=== PATIENT | female | born 1950 | race Caucasian/White ===

== ENCOUNTER 2023-12-26 05:04 | Inpatient (IN) ==
--- NOTE | 2023-12-26 05:43 | ED.ABDFE ---
HPI Time Seen Time Seen by Provider: 12/26/23 05:43 PCP Primary Care Physician: [facility] Chief Complaint Comments: Patient presents with worsening abdominal pain LLQ radiating to RLQ. Patient states that she has had the pain for 2 weeks and it has worsened. It is a cramping pain. Patient states that she has no medical probs. Patient has had fever to 102.2 yesterday after noon. Patient denies: hematemesis,hematochezia,n,v,back pain,urinary sxs. Chief Complaint:: PT AMBULATORY IN ED WITH C/O LEFT ABD PAIN THAT RADIATES DOWN AND ACROSS LOWER ABD X 2 WEEKS. COVID-19 Coronavirus risk:travel/contact w/high risk person: No Has patient experienced Coronavirus symptoms: No Source History Provided: Patient Mode of arrival Mode of Arrival: Ambulatory Timing Onset of Chief Complaint: 12/12/23 PMH PMH Past Medical History: No Past Medical History: Migraines Past Surgical History: Yes Surgical History: Ectopic Family History History of Family Medical Conditions: Yes Family Medical History: Hypertension Social History Does patient currently use any type of tobacco product: Yes Have you used tobacco products in the last 12 months: Yes Type of Tobacco Use: Cigarettes Does any household member use tobacco: No Alcohol Use: None Do you use any recreational Drugs:: No Lives With: Family Lives Where: Home Travel Risk Coronavirus risk:travel/contact w/high risk person: No Has patient experienced Coronavirus symptoms: No Infectious screening In the last 2 months have you had wt loss of >10#?: NO Have you had fever, night sweats or hemotysis?: No Have you traveled outside the country in the last 6 months?: No Isolation: Standard ROS Review of Systems Constitutional: Fever Eyes: No Symptoms Reported ENTM: No Symptoms Reported Respiratoy: No Symptoms Reported Cardiovascular: No Symptoms Reported Gastrointestinal/Abdominal: Abdominal Pain (LLQ/RLQ) Genitourinary: No Symptoms Reported Neurological: No Symptoms Reported Musculoskeletal: No Symptoms Reported Integumentary: No Symptoms Reported Hematologic/Lymphatic: No Symptoms Reported Endocrine: No Symptoms Reported Psychiatric: No Symptoms Reported All Other Systems: Reviewed and Negative PE Vital Signs Vitals: Vital Signs Temperature 99.3 F Pulse Rate 99 Pulse Rate 100 Pulse Rate 100 Pulse Rate 99 Pulse Rate 99 Pulse Rate 98 Pulse Rate 95 Pulse Rate 95 Pulse Rate 98 Pulse Rate 99 Pulse Rate 101 Pulse Rate 103 Pulse Rate 105 Pulse Rate 113 Respiratory Rate 18 Respiratory Rate 22 Blood Pressure 95/62 Blood Pressure 77/51 Blood Pressure 86/66 Blood Pressure 87/66 Blood Pressure 87/58 Blood Pressure 95/52 Blood Pressure 110/78 O2 Sat by Pulse Oximetry 96 O2 Sat by Pulse Oximetry 94 O2 Sat by Pulse Oximetry 96 O2 Sat by Pulse Oximetry 93 O2 Sat by Pulse Oximetry 100 O2 Sat by Pulse Oximetry 98 O2 Sat by Pulse Oximetry 99 O2 Sat by Pulse Oximetry 97 O2 Sat by Pulse Oximetry 85 O2 Sat by Pulse Oximetry 89 O2 Sat by Pulse Oximetry 91 O2 Sat by Pulse Oximetry 91 O2 Sat by Pulse Oximetry 94 O2 Sat by Pulse Oximetry 91 General Limitations: No Limitations and Language Barrier General Appearance: Alert and In No Apparent Distress Head Head Exam: Normal Inspection Eyes Eye exam: Normal Appearance ENT ENT Exam: Normal Exam Neck Neck Exam: Normal Inspection Chest Chest Inspection: Normal Inspection Respiratory Respiratory Exam: Normal Lung Sounds Bilat Respiratory Exam: Bilateral: Clear to Auscultation Cardiovascular Cardiovascular Exam: Regular Rate and Normal Rhythm Abdominal Exam Abdominal Exam: Soft, Tenderness, Guarding (luq and LLq) and Hypoactive Bowel Sounds Abdominal Tenderness: RLQ, LUQ and LLQ Rectal Rectal Exam: Deferred Back Back Exam: Normal Inspection Extremeties Extremities Exam: Normal Inspection Neurologic Neurological Exam: Alert and Oriented X3 Psychiatric Psychiatric Exam: Normal Affect and Normal Mood Skin Skin Exam: Warm, Dry and Intact MDM Differential Diagnosis Differential Diagnosis- Considerations may include:: Bowel Obstruction, Diverticular disease, Inflammatory BD, Urinary tract infection and Urolithiasis COURSE Treatment Treatment: Patient was brought to an exam rm and iv access was initiated. She was given NS 1 liter iv bolus and morphine 2mg iv/zofran 4mg iv. Patient is getting a second NS bolus iv. Her u/a is pos and wbc is 12.8.Patient received levaquin 750mg iv. Abd/pelvis CT w/ contrast revealed L colitis and ureteritis. Patient had episode of hypotension that is resolving with the 2nd fluid bolus. Flagyl 500mg iv q 6h has been ordered. Discussed case with Dr Pérez Patient's Primary Care physician . Dr Pérez has accepted Patient to his service. Dr Pérez states that patient has h/o COPD.will order albuterol neb treatments prn. [facility] Labs Reviewed 12/26/23 06:08 12/26/23 06:08 Laboratory: WBC 12.8 X10^3/uL (3.6-10.0) H 12/26/23 06:08 RBC 5.08 X10^6/uL (3.5-5.4) 12/26/23 06:08 Hgb 15.2 g/dL (12.0-16.0) 12/26/23 06:08 Hct 47.0 % (36.0-47.0) 12/26/23 06:08 MCV 92.6 fL (80.0-100.0) 12/26/23 06:08 MCH 30.0 pg (27.0-34.0) 12/26/23 06:08 MCHC 32.4 g/dL (33.0-35.0) L 12/26/23 06:08 RDW 13.8 % (11.6-16.5) 12/26/23 06:08 Plt Count 276 X10^3/uL (150.0-450.0) 12/26/23 06:08 MPV 8.1 fL (7.4-11.0) 12/26/23 06:08 Neut % (Auto) 78.7 % (42.0-75.0) H 12/26/23 06:08 Lymph % (Auto) 10.8 % (21.0-51.0) L 12/26/23 06:08 Mclean % (Auto) 9.3 % (0.0-13.0) 12/26/23 06:08 Eos % (Auto) 0.6 % (0.9-2.9) L 12/26/23 06:08 Baso % (Auto) 0.6 % (0.2-1.0) 12/26/23 06:08 Neut # (Auto) 10.1 x10^3/uL (2.2-4.8) H 12/26/23 06:08 Lymph # (Auto) 1.4 X10^3/uL (1.3-2.9) 12/26/23 06:08 Mclean # (Auto) 1.2 x10^3/uL (0.3-0.8) H 12/26/23 06:08 Eos # (Auto) 0.1 x10^3/uL (0.0-0.2) 12/26/23 06:08 Baso # (Auto) 0.1 X10^3/uL (0.0-0.1) 12/26/23 06:08 Absolute Nucleated RBC 0.1 /100WBC 12/26/23 06:08 Sodium 136 mmol/L (136-145) 12/26/23 06:08 Corrected Sodium 136 mmol/L (136-145) 12/26/23 06:08 Potassium 3.9 mmol/L (3.5-5.1) 12/26/23 06:08 Chloride 100 mmol/L (98-107) 12/26/23 06:08 Carbon Dioxide 28.8 mmol/L (21-32) 12/26/23 06:08 BUN 19 mg/dL (7-18) H 12/26/23 06:08 Creatinine 1.20 mg/dL (0.55-1.02) H 12/26/23 06:08 Est GFR (MDRD) Af Amer 57 (>60) L 12/26/23 06:08 Est GFR (MDRD) Non-Af 47 (>60) L 12/26/23 06:08 Glucose 119 mg/dL (65-99) H 12/26/23 06:08 Lactic Acid 1.3 mmol/L (0.4-2.0) 12/26/23 06:08 Calcium 8.7 mg/dL (8.5-10.1) 12/26/23 06:08 Amylase 39 Units/L (25-115) 12/26/23 06:08 Lipase 22 Units/L (16-77) 12/26/23 06:08 Specimen Type Clean catch urine 12/26/23 06:10 Urine Color Yellow (YELLOW) 12/26/23 06:10 Urine Appearance Hazy (CLEAR) 12/26/23 06:10 Urine pH 5.0 (5.0 - 8.0) 12/26/23 06:10 Ur Specific Dyer 1.020 (1.000-1.030) 12/26/23 06:10 Urine Protein 3+ (NEGATIVE) 12/26/23 06:10 Urine Glucose (UA) Negative (NEGATIVE) 12/26/23 06:10 Urine Ketones Negative (NEGATIVE) 12/26/23 06:10 Urine Blood 3+ (NEGATIVE) 12/26/23 06:10 Urine Nitrite Positive (NEGATIVE) 12/26/23 06:10 Urine Bilirubin Negative (NEGATIVE) 12/26/23 06:10 Urine Urobilinogen Normal (NORMAL) 12/26/23 06:10 Ur Leukocyte Esterase 3+ (NEGATIVE) 12/26/23 06:10 Opioid Opioid Risk Tool Age (Johann box if 16-45): No History of Preadolescent Sexual Abuse: No Total: 0 Total Score Risk Category: Low Risk Copyright: Charles MEDRANO predicting aberrant behaviors Discharge Plan Diagnosis Discharge Problem: Colitis, Ureteritis, Urinary tract infection Discharge Plan Patient Disposition: ADMITTED INPATIENT Condition: Stable Prescriptions: No Action [facility] Concerns: Post Hospitalization: new medications and changes needed to prevent readmission or further decline. Pt educated and given instructions on all concerns. Plan of Treatment: Continue with present treatment and follow up plan. Pt is to keep follow up appointment as instructed and take medications as ordered. Orders to Discharge Patient Discharge Orders: Transfer (Routine); Ordered 12/26/23 Ordered By: Shayna Zamora Follow ups/Referrals Follow ups/Referrals: RIN PÉREZ [Primary Care Provider] - 3 days Instructions Stand Alone Forms: Post Hospital Follow Up Care
[2023-12-26] MEDS: MORPHINE SULFATE INJ 2 MG INJ IVP ONE (06:06)
[2023-12-26] MEDS: PEPCID 20 MG VIAL IVP ONE (06:06)
[2023-12-26] MEDS: NS 1,000 ML IV 1,000 ML IV ONE ×2 (06:06→07:54)
[2023-12-26] MEDS: ZOFRAN INJ 4 MG VIAL IVP ONE (06:06)
[2023-12-26 06:30] LABS: BASOPHILS # (AUTO) 0.1 X10^3/uL (0.0-0.1); BASOPHILS % (AUTO) 0.6 % (0.2-1.0); EOSINOPHILS # (AUTO) 0.1 x10^3/uL (0.0-0.2); EOSINOPHILS % (AUTO) 0.6 % (0.9-2.9); HEMOGLOBIN 15.2 g/dL (12.0-16.0); LYMPHOCYTES # (AUTO) 1.4 X10^3/uL (1.3-2.9); LYMPHOCYTES % (AUTO) 10.8 % (21.0-51.0); MEAN CORPUSCULAR HGB CONC 32.4 g/dL (33.0-35.0); MEAN CORPUSCULAR VOLUME 92.6 fL (80.0-100.0); MEAN PLATELET VOLUME 8.1 fL (7.4-11.0); MONOCYTES # (AUTO) 1.2 x10^3/uL (0.3-0.8); MONOCYTES % (AUTO) 9.3 % (0.0-13.0); NEUTROPHILS # (AUTO) 10.1 x10^3/uL (2.2-4.8); NEUTROPHILS % (AUTO) 78.7 % (42.0-75.0); PLATELET COUNT 276 X10^3/uL (150.0-450.0); RED BLOOD COUNT 5.08 X10^6/uL (3.5-5.4); RED CELL DISTRIBUTION WIDTH 13.8 % (11.6-16.5); WHITE BLOOD COUNT 12.8 X10^3/uL (3.6-10.0)
[2023-12-26 06:31] LABS: BILIRUBIN,URINE NEGATIVE (NEGATIVE); BLOOD/HEMOGLOBIN,URINE 3+ (NEGATIVE); GLUCOSE, URINE NEGATIVE (NEGATIVE); KETONES,URINE NEGATIVE (NEGATIVE); LEUKOCYTE ESTERASE ,URINE 3+ (NEGATIVE); NITRITES,URINE POSITIVE (NEGATIVE); PROTEIN,URINE 3+ (NEGATIVE); UROBILINOGEN,URINE NORMAL (NORMAL)
[2023-12-26 06:34] LABS: APPEARANCE,URINE HAZY (CLEAR); COLOR,URINE YELLOW (YELLOW)
[2023-12-26 06:51] LABS: POTASSIUM 3.9 mmol/L (3.5-5.1)
[2023-12-26 06:58] LABS: CALCIUM 8.7 mg/dL (8.5-10.1); CARBON DIOXIDE 28.8 mmol/L (21-32); CREATININE 1.2 mg/dL (0.55-1.02)
[2023-12-26] MEDS: LEVAQUIN PREMIX IV 750 MG 750 MG/150 ML BAG IV ONE (07:08)
--- NOTE | 2023-12-26 07:44 | CT ---
EXAM:ABDCMEN/PELVIS WITH CONHISTORY:fever,llq pain,lk for inflam/perf/obstr/ischem; ECTOPIC PREGNANCYCOMPARISON:NoneTECHNIQUE:CT of the abdomen and pelvis obtained with IV contrast. Dose reduction techniques including Automated Exposure Control (AEC) and adjustment of mA and kV were utilized.FINDINGS:The visualized portions of the lower thorax demonstrate no acute process.No acute osseous abnormality. Multilevel degenerative changes in the visualized spine.The liver, gallbladder, spleen, pancreas, bilateral adrenal glands, and bilateral kidneys demonstrate no acute process. Possible urothelial enhancement in the proximal left ureter.No evidence of bowel obstruction. The appendix is unremarkable. Moderate colonic fecal burden. Possible mild thickening of the descending colon.The bladder is unremarkable. The uterus is present. No free air or fluid. Nonaneurysmal aorta. Scattered vascular calcifications.IMPRESSION:Possible mild thickening of the descending colon which could be seen with infectious/inflammatory colitis.Possible proximal left ureteritis.THIS IS AN ELECTRONICALLY VERIFIED FINAL REPORT12/26/2023 7:41 AM - Electronically signed by Lance Adames MD
[2023-12-26] MEDS ORDERED: PROVENTIL NEB TX 0.083% 2.5MG/ 3ML NEB PRN (08:17)
[2023-12-26] MEDS: PROVENTIL NEB TX 0.083% 2.5MG/ 3ML NEB ONE (08:23)
[2023-12-26] MEDS: LEVAQUIN PREMIX IV 750 MG 750 MG/150 ML BAG IV SCH (10:00)
[2023-12-26 10:05] LABS: ALBUMIN 2.5 g/dL (3.4-5.0); COR CA(FOR HYPOALB) 9.9 mg/dL (8.5-10.1)
[2023-12-26 10:16] LABS: TOTAL PROTEIN 6.8 g/dL (6.4-8.2)
[2023-12-26] MEDS: COLACE CAP 100 MG PO STA (10:33)
[2023-12-26] MEDS: FLAGYL IV PREMIX 500 MG BAG 500 MG/100 ML BAG IV SCH (10:33)
[2023-12-26] MEDS: DUONEB 0.5 MG/3 MG (3 mL) NEB SCH (12:40)
[2023-12-26] MEDS: TYLENOL 500 MG TAB EXTRA STRENGTH PO PRN (14:46)
[2023-12-26] MEDS: NS 1,000 ML IV 1,000 ML IV SCH (17:05)
[2023-12-26 17:15] VITALS: BMI 20.5
[2023-12-26] MEDS: COLACE CAP 100 MG PO SCH (20:35)
[2023-12-26] MEDS: MILK OF MAGNESIA PO SCH (20:35)
[2023-12-27 06:48] LABS: BASOPHILS # (AUTO) 0.1 X10^3/uL (0.0-0.1); BASOPHILS % (AUTO) 0.9 % (0.2-1.0); EOSINOPHILS # (AUTO) 0.1 x10^3/uL (0.0-0.2); HEMATOCRIT 40.2 % (36.0-47.0); HEMOGLOBIN 13.4 g/dL (12.0-16.0); LYMPHOCYTES # (AUTO) 1.3 X10^3/uL (1.3-2.9); LYMPHOCYTES % (AUTO) 13.2 % (21.0-51.0); MEAN CORPUSCULAR HGB CONC 33.3 g/dL (33.0-35.0); MEAN PLATELET VOLUME 8.1 fL (7.4-11.0); MONOCYTES # (AUTO) 0.9 x10^3/uL (0.3-0.8); MONOCYTES % (AUTO) 9.4 % (0.0-13.0); NEUTROPHILS # (AUTO) 7.3 x10^3/uL (2.2-4.8); NEUTROPHILS % (AUTO) 75.5 % (42.0-75.0); PLATELET COUNT 223 X10^3/uL (150.0-450.0); RED BLOOD COUNT 4.33 X10^6/uL (3.5-5.4); RED CELL DISTRIBUTION WIDTH 13.6 % (11.6-16.5); WHITE BLOOD COUNT 9.6 X10^3/uL (3.6-10.0)
[2023-12-27 06:53] LABS: ALANINE AMINOTRANSFERASE 16 Units/L (12-78); ALBUMIN 1.9 g/dL (3.4-5.0); ALKALINE PHOSPHATASE 77 Units/L (46-116); ASPARTATE AMINO TRANSFERASE 22 Units/L (15-37); BLOOD UREA NITROGEN 14 mg/dL (7-18); CALCIUM 8.2 mg/dL (8.5-10.1); CARBON DIOXIDE 29.2 mmol/L (21-32); CHLORIDE 106 mmol/L (98-107); COR CA(FOR HYPOALB) 9.9 mg/dL (8.5-10.1); CREATININE 0.98 mg/dL (0.55-1.02); GLUCOSE 108 mg/dL (65-99); SODIUM 140 mmol/L (136-145); TOTAL PROTEIN 5.7 g/dL (6.4-8.2); eGFR NON BLACK RACES 59 (>60)
[2023-12-27 06:59] LABS: POTASSIUM 4.2 mmol/L (3.5-5.1)
[2023-12-27] MEDS: LEVAQUIN PREMIX IV 750 MG 750 MG/150 ML BAG IV ONE (08:20)
[2023-12-27] MEDS: OMNIPAQUE 350 mg/mL 100 mL BTL 100 ML ONE (08:20)
[2023-12-27] MEDS: NS 1,000 ML IV 1,000 ML ONE (08:21)
[2023-12-27] MEDS: PROVENTIL NEB TX 0.083% 2.5MG/ 3ML ONE (08:21)
[2023-12-27] MEDS: DUONEB 0.5 MG/3 MG (3 mL) NEB ONE ×2 (08:22)
[2023-12-27] MEDS ORDERED: LINZESS PO SCH (09:00)
[2023-12-27] MEDS ORDERED: COLACE CAP 100 MG PO SCH (09:00)
[2023-12-27] MEDS: COLACE CAP 100 MG PO SCH (10:12)
[2023-12-27] MEDS: CITROMA PO ONE (12:07)
[2023-12-27] MEDS: TOPROL XL PO SCH (21:40)
[2023-12-28 05:05] LABS: BASOPHILS % (AUTO) 0.3 % (0.2-1.0); EOSINOPHILS # (AUTO) 0.1 x10^3/uL (0.0-0.2); HEMATOCRIT 42.1 % (36.0-47.0); HEMOGLOBIN 13.9 g/dL (12.0-16.0); LYMPHOCYTES # (AUTO) 1.4 X10^3/uL (1.3-2.9); LYMPHOCYTES % (AUTO) 13.6 % (21.0-51.0); MEAN CORPUSCULAR HEMOGLOBIN 30.6 pg (27.0-34.0); MEAN CORPUSCULAR HGB CONC 32.9 g/dL (33.0-35.0); MEAN CORPUSCULAR VOLUME 92.9 fL (80.0-100.0); MONOCYTES # (AUTO) 0.9 x10^3/uL (0.3-0.8); MONOCYTES % (AUTO) 8.4 % (0.0-13.0); NEUTROPHILS # (AUTO) 7.9 x10^3/uL (2.2-4.8); NEUTROPHILS % (AUTO) 76.7 % (42.0-75.0); PLATELET COUNT 255 X10^3/uL (150.0-450.0); RED BLOOD COUNT 4.53 X10^6/uL (3.5-5.4); RED CELL DISTRIBUTION WIDTH 13.2 % (11.6-16.5); WHITE BLOOD COUNT 10.3 X10^3/uL (3.6-10.0)
[2023-12-28 05:33] LABS: ALANINE AMINOTRANSFERASE 25 Units/L (12-78); ALBUMIN 2.2 g/dL (3.4-5.0); ALKALINE PHOSPHATASE 103 Units/L (46-116); ASPARTATE AMINO TRANSFERASE 30 Units/L (15-37); BLOOD UREA NITROGEN 11 mg/dL (7-18); CALCIUM 8.4 mg/dL (8.5-10.1); CARBON DIOXIDE 32.8 mmol/L (21-32); CHLORIDE 104 mmol/L (98-107); COR CA(FOR HYPOALB) 9.8 mg/dL (8.5-10.1); COR NA(FOR HYPERGLY) 142 mmol/L (136-145); CREATININE 0.89 mg/dL (0.55-1.02); GLUCOSE 133 mg/dL (65-99); SODIUM 141 mmol/L (136-145); TOTAL PROTEIN 5.9 g/dL (6.4-8.2); eGFR NON BLACK RACES > 60 (>60)
[2023-12-28] MEDS: TOPROL XL PO ONE (08:43)
[2023-12-28] MEDS: ALPRAZOLAM ODT PO PRN (10:44)
--- NOTE | 2023-12-28 11:02 | RAD ---
EXAM: ACUTE ABDOMEN SERI ES HISTORY: FECAL RETENTION; COMPARISON: None. TECHNIQUE: One view of the chest and three views of the abdomen obtained FINDINGS: Heart size normal. Hyperinflated lungs. Lungs clear. No pneumothorax. Hilar and mediastinal struc tures and bony structures are unremarkable. Degenerative changes in the spine. Oxygen tubing projec ts over the left chest. The overall bowel gas pattern is normal. No free air, dilated loops or significant air-fluid levels. Moderate stool in the left colon and rectosigmoid. No abnormal calcifications in the distribution of the kidneys or ureters. Dextroscoliosis with multilevel degenerative changes. IMPRESSION: Constipation. No acute findings. THIS IS AN ELECTRONICALLY VERIFIED FINAL REPORT 12/28/2023 10:59 AM - Electronically signed by Alexei Ayala MD
[2023-12-28] MEDS: CATAPRES TAB 0.1 MG PO ONE (12:47)
[2023-12-28] MEDS: GOLYTELY or GAVILYTE or Equivalent PO SCH (13:28)
[2023-12-28] MEDS: CITROMA PO ONE (13:51)
[2023-12-28] MEDS ORDERED: TOPROL XL PO ONE (20:20)
[2023-12-29 05:33] LABS: BASOPHILS % (AUTO) 0.4 % (0.2-1.0); EOSINOPHILS # (AUTO) 0.1 x10^3/uL (0.0-0.2); EOSINOPHILS % (AUTO) 1.1 % (0.9-2.9); HEMATOCRIT 42.5 % (36.0-47.0); LYMPHOCYTES # (AUTO) 1.6 X10^3/uL (1.3-2.9); LYMPHOCYTES % (AUTO) 14.9 % (21.0-51.0); MEAN CORPUSCULAR HEMOGLOBIN 30.4 pg (27.0-34.0); MEAN CORPUSCULAR HGB CONC 32.8 g/dL (33.0-35.0); MEAN CORPUSCULAR VOLUME 92.6 fL (80.0-100.0); MONOCYTES # (AUTO) 0.9 x10^3/uL (0.3-0.8); MONOCYTES % (AUTO) 8.5 % (0.0-13.0); NEUTROPHILS # (AUTO) 8.2 x10^3/uL (2.2-4.8); NEUTROPHILS % (AUTO) 75.1 % (42.0-75.0); PLATELET COUNT 253 X10^3/uL (150.0-450.0); RED BLOOD COUNT 4.59 X10^6/uL (3.5-5.4); RED CELL DISTRIBUTION WIDTH 13.7 % (11.6-16.5)
[2023-12-29 05:48] LABS: ALANINE AMINOTRANSFERASE 21 Units/L (12-78); ALBUMIN 2.2 g/dL (3.4-5.0); ALKALINE PHOSPHATASE 106 Units/L (46-116); ASPARTATE AMINO TRANSFERASE 18 Units/L (15-37); BLOOD UREA NITROGEN 12 mg/dL (7-18); CALCIUM 8.2 mg/dL (8.5-10.1); CARBON DIOXIDE 32.8 mmol/L (21-32); CHLORIDE 104 mmol/L (98-107); COR CA(FOR HYPOALB) 9.6 mg/dL (8.5-10.1); COR NA(FOR HYPERGLY) 142 mmol/L (136-145); CREATININE 0.96 mg/dL (0.55-1.02); GLUCOSE 130 mg/dL (65-99); POTASSIUM 4.1 mmol/L (3.5-5.1); SODIUM 141 mmol/L (136-145); TOTAL PROTEIN 6.2 g/dL (6.4-8.2); eGFR NON BLACK RACES > 60 (>60)
[2023-12-29] MEDS: LEVAQUIN TAB 750 MG PO SCH (09:53)
[2023-12-29 10:59] VITALS: BP 160/98; PULSE 74; RESP 18; TEMP 97; O2SAT 93
== END 2023-12-29 11:55 | disposition home or self-care (01) | DRG 392 ==
LOC: U 05:12 → MED/SURG 05:12 → ER 05:12 → OBSVTOIN 09:24 → MED/SURG 11:36
PROVIDERS: ADMIT Obstetrics & Gynecology Obstetrics; ATTEND Obstetrics & Gynecology Obstetrics
DX: K52.89 Other specified noninfective gastroenteritis and colitis; Z63.4 Disappearance and death of family member; F43.22 Adjustment disorder with anxiety; N39.0 Urinary tract infection, site not specified; N28.89 Other specified disorders of kidney and ureter; K59.09 Other constipation; B96.29 Other Escherichia coli [E. coli] as the cause of diseases classified elsewhere; I95.89 Other hypotension; R79.82 Elevated C-reactive protein (CRP); R63.0 Anorexia; Z68.20 Body mass index [BMI] 20.0-20.9, adult; R10.32 Left lower quadrant pain